=== PATIENT | female | born 1940 | race Caucasian/White ===

== ENCOUNTER 2017-05-05 17:25 | Emergency (ER) | payer MEDICARE, BC ==
[~2017-05-05] VITALS: Ht 154.9 cm; Wt 52.3 kg
[~2017-05-05 17:25] MED LIST: ATEN1TAB74 PO; CENTTAB9 PO; FIORINAL2 PO; LEVO50TA51 PO; ORPH100T PO; TRAM50 PO; TUMS500C PO
[2017-05-05 17:50] VITALS: BP 185/84; PULSE 99; RESP 16; TEMP 98.3; O2SAT 96
[2017-05-05] MEDS ORDERED: CENTCHW4 CHEW (18:07)
[2017-05-05] MEDS ORDERED: LEVO25TA4 PO (18:07)
[2017-05-05] MEDS ORDERED: VITD400 PO (18:07)
[2017-05-05] MEDS ORDERED: FIORINAL2 PO (18:07)
[2017-05-05] MEDS ORDERED: TUMS500C CHEW (18:07)
[2017-05-05] MEDS ORDERED: METO25TA3 PO (18:07)
[2017-05-05] MEDS ORDERED: TRAM50 PO (18:15)
[2017-05-05] MEDS ORDERED: ORPH100T2 PO (18:18)
--- NOTE | 2017-05-05 18:22 | PD ---
HPI . Back pain Chief Complaint: Back/ Neck Pain or Injury Time Seen by Provider: 18:08 Travel History International Travel<30 days: No Contact w/Intl Traveler<30days: No Traveled to known affect area: No History of Present Illness HPI This patient presents with a chief complaint of back pain. She states that it is muscle spasm. This started on April 27. She states her pain comes and goes. It is not there every day. She states that there are no modifying factors. Pain is not exacerbated by movement. She has no associated symptoms such as cough, fever, shortness of breath, urinary tract symptoms, neurological symptoms. She states that she has had this many times in the past and that it is muscle spasms. She states that her current episode is identical to previous episodes. She rates the pain 10/10. PFSH Past Medical History Arthritis: Yes Diminished Hearing: No Headaches: Yes Hypertension: Yes Immunizations Current: Yes Thyroid Disease: Yes Tetanus Vaccination: > 5 Years Influenza Vaccination: Yes ?: Not Past Surgical History Gynecologic Surgery: Yes Hysterectomy: Yes Other Surgery: Yes (RIGHT LUMPECTOMY) Social History Alcohol Use: No Tobacco Use: No Substance Use: No Allergies-Medications (Allergen,Severity, Reaction): Coded Allergies: No Known Allergies (Verified Adverse Reaction, Unknown, 05/05/17) Reported Meds & Prescriptions Reported Meds & Active Scripts Active Orphenadrine CR (Orphenadrine Citrate) 100 Mg Tab 100 Mg PO Q12HR Ultram (Tramadol HCl) 50 Mg Tab 50 Mg PO Q4H PRN Reported Tums (Calcium Carbonate (Antacid)) 500 Mg Chew 500 Mg CHEW DAILY PRN Vitamin D3 (Cholecalciferol) 400 Unit Tab 400 Units PO DAILY Metoprolol Tartrate 25 Mg Tab 25 Mg PO BID Fiorinal (Butalbital/Aspirin/Caffeine) 50-325-40 Mg Cap 1 Cap PO BID PRN Do not exceed 6 capsules/day. Centrum (Multiple Vitamins W/ Minerals) 1 Chew 1 Tab CHEW DAILY Levothyroxine (Levothyroxine Sodium) 25 Mcg Tab 25 Mcg PO DAILY Review of Systems Except as stated in HPI: all other systems reviewed are Neg Physical Exam Narrative GENERAL: Awake and alert and in no acute distress. I found her standing beside the stretcher. SKIN: Warm and dry. HEAD: Normocephalic/atraumatic. EYES: Pupils are equal. Extraocular movements are intact. NECK: Normal range of motion. CARDIOVASCULAR: Regular rate and rhythm. RESPIRATORY: Nonlabored respirations. MUSCULOSKELETAL: Atraumatic. No tenderness to percussion of her spine. No CVA tenderness. She actually has no tenderness to palpation of her back. NEUROLOGICAL: Nonfocal. PSYCHIATRIC: Appropriate mood and affect. Data Data Last Documented VS Vital Signs Date Time Temp Pulse Resp B/P (MAP) Pulse Ox O2 Delivery O2 Flow Rate FiO2 05/05/17 17:50 98.3 99 16 185/84 (117) 96 Orders Orders Ed Discharge Order (05/05/17 18:18) [facility] Medical Decision Making Medical Screen Exam Complete: Yes Emergency Medical Condition: Yes Medical Record Reviewed: Yes (this patient was seen here a few years ago with similar symptoms. She was treated at that time with Ultram and Norflex. That record indicates she has had previous MRI and CAT scan to evaluate her back pain. The etiology of her pain has been attributed to muscle spasm.) Differential Diagnosis Differential diagnosis includes but is not limited to muscular low back pain, DDD, spinal stenosis, epidural abscess, sciatica, kidney infection or stone. Narrative Course This patient presents with recurrent right-sided back pain. She has been treated in the past with Ultram and Norflex. I will give her prescriptions for same. Diagnosis Primary Impression: Back pain Qualified Codes: M54.6 - Pain in thoracic spine Patient Instructions: General Instructions, Back Pain (ED) Departure Forms: Tests/Procedures Scripts Orphenadrine ER 12 HR (Orphenadrine CR) 100 Mg Tab 100 MG PO Q12HR for Muscle Spasm, #60 TAB 0 Refills Prov: Eryn Bailon MD 05/05/17 Tramadol (Ultram) 50 Mg Tab 50 MG PO Q4H Y for PAIN, #12 TAB 0 Refills Prov: Eryn Bailon MD 05/05/17 Disposition: 01 DISCHARGE HOME Condition: Stable Eryn Bailon MD May 05, 2017 18:22
== END 2017-05-05 18:26 | disposition home or self-care (01) ==
LOC: PHEFT 17:25
DX: M54.6 Pain in thoracic spine (principal); E07.9 Disorder of thyroid, unspecified; I10 Essential (primary) hypertension
CPT/HCPCS: 99284